=== PATIENT | female | born 1990 | race African-American/Black ===

== ENCOUNTER 2016-04-06 12:43 | Emergency (ER) | payer SELFPAY ==
[~2016-04-06] VITALS: Ht 180.3 cm; Wt 65.0 kg
[~2016-04-06 12:43] MED LIST: CEPH-460 PO
[2016-04-06 12:46] VITALS: BP 107/59; PULSE 65; RESP 12; TEMP 98.2; O2SAT 99
--- NOTE | 2016-04-06 13:40 | PD ---
HPI Chief Complaint: Psychiatric Symptoms Time Seen by Provider: 13:38 Travel History International Travel<30 days: No Contact w/Intl Traveler<30days: No Traveled to known affect area: No History of Present Illness HPI 25-year-old female that presents to the ED for evaluation of psych. Patient reports that she's been having suicidal ideation as well as depression. She takes no medications for it. She self medicates with marijuana for recreation. Denies any alcohol or other drug abuse. IV drugs. Denies any homicidal ideation. Denies any medical problems. Denies taking any medications but any kind. Denies . No allergies to medication. PFSH Past Medical History Depression: Yes (INPATIENT FOR 6 MOS. [place] 2009) Diminished Hearing: No Reproductive: Yes (CHLAMYDIA) Immunizations Current: Yes Tetanus Vaccination: Unknown Influenza Vaccination: Yes ?: Not LMP: NOW : 3 Para: 3 Past Surgical History Surgical History: No Previous Surgery Social History Alcohol Use: No Tobacco Use: No Substance Use: Yes (MARAJUANA DAILY; LAST USED LAST NIGHT) Allergies-Medications (Allergen,Severity, Reaction): Coded Allergies: No Known Allergies (Verified , 04/06/16) Reported Meds & Prescriptions Reported Meds & Active Scripts Active Review of Systems Except as stated in HPI: all other systems reviewed are Neg Physical Exam Narrative GENERAL: SKIN: Warm and dry. HEAD: Atraumatic. Normocephalic. EYES: Pupils equal and round. No scleral icterus. No injection or drainage. ENT: No nasal bleeding or discharge. Mucous membranes pink and moist. Tongue is midline. No uvula deviation. NECK: Trachea midline. No JVD. CARDIOVASCULAR: Regular rate and rhythm. No murmurs, S3, S4. RESPIRATORY: No accessory muscle use. Clear to auscultation. Breath sounds equal bilaterally. GASTROINTESTINAL: Abdomen soft, non-tender, nondistended. Hepatic and splenic margins not palpable. MUSCULOSKELETAL: Extremities without clubbing, cyanosis, or edema. No obvious deformities. Full range of motion of the upper and lower extremities bilaterally. 2+ pulses bilaterally. NEUROLOGICAL: Awake and alert. No obvious cranial nerve deficits. Motor grossly within normal limits. Five out of 5 muscle strength in the arms and legs. Normal speech. PSYCHIATRIC: Appropriate mood and affect; insight and judgment normal. Data Data Last Documented VS Vital Signs Date Time Temp Pulse Resp B/P Pulse Ox O2 Delivery O2 Flow Rate FiO2 04/06/16 14:02 97.7 68 18 114/61 100 Room Air Orders Complete Blood Count With Diff (04/06/16 13:17) Comprehensive Metabolic Panel (04/06/16 13:17) Drug Screen, Random Urine (04/06/16 13:17) Ed Urine Pregnancytest Poc (04/06/16 13:17) Psych Screen (04/06/16 13:17) Diet Regular Basic (04/06/16 Dinner) Labs Laboratory Tests Test 04/06/16 14:00 White Blood Count 4.7 TH/MM3 Red Blood Count 4.37 MIL/MM3 Hemoglobin 13.1 GM/DL Hematocrit 39.4 % Mean Corpuscular Volume 90.2 FL Mean Corpuscular Hemoglobin 29.9 PG Mean Corpuscular Hemoglobin 33.1 % Concent Red Cell Distribution Width 12.8 % Platelet Count 246 TH/MM3 Mean Platelet Volume 8.0 FL Neutrophils (%) (Auto) 31.6 % Lymphocytes (%) (Auto) 48.2 % Monocytes (%) (Auto) 7.4 % Eosinophils (%) (Auto) 11.6 % Basophils (%) (Auto) 1.2 % Neutrophils # (Auto) 1.5 TH/MM3 Lymphocytes # (Auto) 2.3 TH/MM3 Monocytes # (Auto) 0.3 TH/MM3 Eosinophils # (Auto) 0.5 TH/MM3 Basophils # (Auto) 0.1 TH/MM3 CBC Comment DIFF FINAL Differential Comment Urine Opiates Screen NEG Urine Barbiturates Screen NEG Urine Amphetamines Screen NEG Urine Benzodiazepines Screen NEG Urine Cocaine Screen NEG Urine Cannabinoids Screen POS MDM Medical Decision Making Medical Screen Exam Complete: Yes Emergency Medical Condition: Yes Medical Record Reviewed: Yes Interpretation(s) CBC Diagram 04/06/16 14:00 tox positive for marijuana Differential Diagnosis Depression versus suicidal ideation versus anxiety versus adjustment disorder versus mood disorder versus bipolar disorder versus schizophrenia versus paranoid disorder versus psychosis versus substance abuse versus alcohol abuse versus alcohol induced psychosis versus homicidality addition versus cutting versus personality disorder Narrative Course 25-year-old female that presents to the ED for evaluation of psych. Patient was properly examined and was found to have signs and symptoms consistent appears to be septic illness. Labs were drawn. Patient was medically clear. Okay to be seen by psych. Mental health screening was discussed with the patient. Diagnosis Primary Impression: Depression Qualified Code: F32.0 - Mild single current episode of major depressive disorder Juan Márquez Apr 06, 2016 13:40
[2016-04-06 14:02] VITALS: BP 114/61; PULSE 68; RESP 18; TEMP 97.7; O2SAT 100
[2016-04-06 14:23] LABS: AUTOMATED NEUTROPHIL # 1.5 TH/MM3 (1.8-7.7); BASOPHIL # 0.1 TH/MM3 (0-0.2); BASOPHIL % 1.2 % (0.0-2.0); EOSINOPHIL # 0.5 TH/MM3 (0-0.4); EOSINOPHIL % 11.6 % (0.0-4.0); HEMATOCRIT 39.4 % (35.0-46.0); HEMO FLAGS DIFF FINAL; LYMPH % 48.2 % (9.0-44.0); LYMPHOCYTE # 2.3 TH/MM3 (1.0-4.8); MEAN CELL VOLUME 90.2 FL (80.0-100.0); MEAN CORPUSCULAR HEMOGLOBIN 29.9 PG (27.0-34.0); MEAN CORPUSCULAR HGB CONC 33.1 % (32.0-36.0); MONO % 7.4 % (0.0-8.0); NEUT % 31.6 % (16.0-70.0); PLATELET COUNT 246 TH/MM3 (150-450); RED BLOOD COUNT 4.37 MIL/MM3 (4.00-5.30); RED CELL DISTRIBUTION WIDTH 12.8 % (11.6-17.2); WHITE BLOOD COUNT 4.7 TH/MM3 (4.0-11.0)
[2016-04-06 14:32] LABS: AMPHETAMINE, URINE NEG (NEG); BARBITURATES, URINE NEG (NEG); COCAINE, URINE NEG (NEG)
[2016-04-06 14:46] LABS: ALT (GPT) 22 U/L (10-53); ANION GAP 5 MEQ/L (5-15); AST (GOT) 11 U/L (15-37); BICARBONATE 28.7 MEQ/L (21.0-32.0); BLOOD UREA NITROGEN 10 MG/DL (7-18); CHLORIDE 105 MEQ/L (98-107); GLOMERULAR FILTRATION RATE 103 ML/MIN (>89); POTASSIUM 3.8 MEQ/L (3.5-5.1); SODIUM (NA) 139 MEQ/L (136-145)
[2016-04-06 14:47] LABS: ALKALINE PHOSPHATASE 89 U/L (45-117); TOTAL BILIRUBIN ADULT 0.7 MG/DL (0.2-1.0)
[2016-04-06 18:50] VITALS: BP 112/60; PULSE 69; RESP 18; O2SAT 99
[2016-04-06 22:00] VITALS: BP 110/58; PULSE 55; RESP 19; O2SAT 97
[2016-04-07 02:00] VITALS: BP 112/62; PULSE 65; RESP 18; O2SAT 99
[2016-04-07 06:44] VITALS: BP 111/58; PULSE 68; RESP 18; O2SAT 100
[2016-04-07 09:32] VITALS: BP 111/58
--- NOTE | 2016-04-07 12:59 | PD.CONS ---
Provisional Diagnosis Admission Date [place] I. Adjustment disorder with disturbance of conduct, cannabis use disorder [place] II. Unspecified personality disorder [place] III. Denies History of Present Illness Service Psychiatry Consult Requested By Primary Care Physician No Primary Care Physician HPI The patient is a 25-year-old AA female, without any previous psychiatric history , no previous psychiatric hospitalizations, no previous suicidal attempts, cannabis use disorder, history of incarcerations in the past, no significant medical history, that presents voluntarily to the ED for evaluation of psych. Patient reports that she's been having suicidal ideation as well as depression. She takes no medications for it. She self medicates with marijuana for recreation. On psychiatric evaluation today patient is calm and cooperative, she said that she came to the hospital because she wanted to connect with psychiatric care, to have somebody to talk, to speak about things from her past , and several things are going on in her life. She says that she has been jailed 3 times, one of this incarceration was for 2 years, most of the time that she had had problems with the law is due to her poor impulse control. She has been engageable burglary, trespassing, robbery, "and other crime issues", "and I would like to understand why I cannot canalize all these negative energy into positive energy and do good things for my life and the live for my kids". She admitted that every morning when she waked up she look out of her room and sees the normal people and she feels hate "because I cannot be like them and I think in hurting them, I would never do it, but those are my thoughts I just want to be honest". At this moment the patient denies depressive symptoms, she denies anxiety, she denies golden, she denies perceptual disturbances. She denies suicidal or homicidal ideation. Only longitudinal observation in the [facility] patient has been calm and cooperative, without any visible or described behavioral or mood dysregulation. Review of Systems Constitutional: DENIES: Diaphoretic episodes, Fatigue, Fever, Weight gain, Weight loss, Chills, Dizziness, Change in appetite, Night Sweats Endocrine: DENIES: Abnorml menstrual pattern, Heat/cold intolerance, Polydipsia , Polyuria, Polyphagia Eyes: DENIES: Blurred vision, Diplopia, Eye inflammation, Eye pain, Vision loss , Photosensitivity, Double Vision Ears, nose, mouth, throat: DENIES: Tinnitus, Hearing loss, Vertigo, Nasal discharge, Oral lesions, Throat pain, Hoarseness, Ear Pain, Running Nose, Epistaxis, Sinus Pain, Toothache, Odynophagia Respiratory: DENIES: Apneas, Cough, Snoring, Wheezing, Hemoptysis, Sputum production, Shortness of breath Cardiovascular: DENIES: Chest pain, Palpitations, Syncope, Dyspnea on Exertion , PND, Lower Extremity Edema, Orthopnea, Claudication Musculoskeletal: DENIES: Joint pain, Muscle aches, Stiffness, Joint Swelling, Back pain, Neck pain Integumentary: DENIES: Abnormal pigmentation, Pruritus, Rash, Nail changes, Breast masses, Breast skin changes, Nipple discharge Immunologic/allergic: DENIES: Eczema, Urticaria Neurologic: DENIES: Abnormal gait, Headache, Localized weakness, Paresthesias, Seizures, Speech Problems, Tremor, Poor Balance Past Family Social History Coded Allergies: No Known Allergies (Verified , 04/06/16) Discontinued Scripts Cephalexin (Keflex)500 Mg [id number] Mg PO Q12H 7 Days Ref 0 Prov:David Kay MD 02/25/16 Family History She denies Social History Patient was born and raised in [place], she is in [place] with her mother and her 3 kids, she is unemployed, single, her highest level of education is high school, she has been in half-way 3 times, was released last December, Patient's Strengths (min. 2) Good insight of her aggression and impulsiveness Physical Exam Vital Signs Vital Signs Date Time Temp Pulse Resp B/P Pulse Ox O2 Delivery O2 Flow Rate FiO2 04/07/16 09:32 111/58 04/07/16 06:44 68 18 100 Room Air 04/06/16 14:02 97.7 Mental Status Examination Appearance woman, multiple visible tattoos, good hygiene, age appearing, [facility], she is calm and cooperative Speech: Unremarkable Orientation: x3 Memory: Unremarkable Thought Process: Logical Thought Content: Unremarkable Hallucination Type: None Suicidal Ideation: No Homicidal Ideation: No Previous Homicide Attempts: No Judgement: WNL Affect if Inappropriate: Flat Mood: Appropriate Motor Activity: Normal gait Assessment & Plan Problem List: (1) Impulse control disorder, unspecified Assessment & Plan: On psychiatric evaluation today patient does not present any evidence depression, anxiety, perceptual disturbances, anxiety, she denies suicidal and homicidal ideation. She denies visual and auditory hallucinations. Patient does not benefit of inpatient psychiatric admission. Patient would benefit of outpatient psychiatric care and counseling in order to address her concerns, needs and questions about her impulsiveness and aggressive behavior, as she is interested in. A package with outpatient sources will be provided. Extensive psychoeducation, brief supportive psychotherapy have been provided. Ortiz act will be lifted. ICD Code: F63.9 Assessment & Plan Estimated LOS: days Leon Alvarez MD Apr 07, 2016 12:59
== END 2016-04-07 09:59 | disposition home or self-care (01) ==
LOC: NEPJ 12:43
DX: F32.0 Major depressive disorder, single episode, mild (principal); R45.851 Suicidal ideations; F43.24 Adjustment disorder with disturbance of conduct; F12.90 Cannabis use, unspecified, uncomplicated; F60.9 Personality disorder, unspecified; F63.9 Impulse disorder, unspecified
CPT/HCPCS: 80053; 80307; 84703; 85025; 99283